=== PATIENT | female | born 1975 ===

== ENCOUNTER 2020-01-13 13:44 | Emergency (ER) | payer MEDICAID ==
[~2020-01-13] VITALS: Ht 157.5 cm; Wt 63.5 kg
[2020-01-13 13:58] VITALS: BP 115/77
--- NOTE | 2020-01-13 14:00 | NUR ---
ED Nurse Note: Patient walked in to ER from home due to generalized body rashes and itching x 2 days. Pt states her rashes began after eating [employer] last tuesday night. Patient presented calm, has rash all over her body, AAO x4, VSS at this time. DARYL Castro at bed side
--- NOTE | 2020-01-13 14:14 | Emergency Room Report ---
History of Present Illness General Chief Complaint: Allergic Reaction Source: Patient Present Illness HPI 44 YO female presents to the ED c/o diffuse itchy rash that is all over her body x 2 days. Pt. reports onset after eating at [employer] on Tuesday afternoon. She denies pain. She reports she has taken benadryl with helps with itching temporarily. Pt. denies fevers, chills or swollen tender lymph nodes. Denies lesions/rashes elsewhere on the body. Denies new medications or body washes or creams. Denies swelling of the lips, tongue , throat or airway. Denies wheezing, or shortness of breath. Denies recent travel, recent illness or ill contacts. denies blisters, oral lesions, or sloughing of the skin. She denies hx of recent infection or autoimmune disease. Pt. denies past medical hx and reports always being healthy and not taking any medications or supplements at all. She denies . 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 Patient History Past Medical History: see triage record Past Surgical History: none Pertinent Family History: none Now: No Reviewed Nursing Documentation: PMH: Agreed; PSxH: Agreed Nursing Documentation-PMH Past Medical History: No Stated History Review of Systems All Other Systems: negative except mentioned in HPI Physical Exam Vital Signs Date Time Temp Pulse Resp B/P (MAP) Pulse Ox O2 Delivery O2 Flow Rate FiO2 01/13/20 13:49 98.4 98 16 115/77 (90) 98 Room Air Sp02 EP Interpretation: reviewed, normal General Appearance: no apparent distress, alert, GCS 15, non-toxic Head: normocephalic, atraumatic Eyes: bilateral eye normal inspection, bilateral eye PERRL ENT: hearing grossly normal, normal pharynx, normal voice, uvula midline, moist mucus membranes, other - no oral lesions. No swelling of the lips or tongue. Neck: full range of motion, other - no stridor Respiratory: chest non-tender, lungs clear, normal breath sounds, no respiratory distress, no accessory muscle use, no wheezing, speaking full sentences Cardiovascular #1: regular rate, rhythm, no edema, normal capillary refill Gastrointestinal: non tender, soft Musculoskeletal: normal range of motion, gait/station normal, non-tender Neurologic: alert, motor strength/tone normal, oriented x3, sensory intact, responsive, speech normal, grossly normal Psychiatric: judgement/insight normal Skin: rash - diffuse urticarial type rash with confluent areas as well as patches with irregular well defined red borders on- torso, extremities, neck and back. few patches on the face. no eye involvement. No blisters or vesicles. No sloughing of the skin. some discrete lesions on the palms and soles. no crusting. No Lymphatic: no adenopathy Medical Decision Making PA Attestation Dr. Jurado is my supervising Physician whom patient management has been discussed with. Diagnostic Impression: Primary Impression: Rash and nonspecific skin eruption Additional Impression: Erythema multiforme ER Course 44 YO female presents to the ED c/o diffuse itchy rash that is all over her body x 2 days. Pt. reports onset after eating at [facility] on Tuesday afternoon. She denies pain. She reports she has taken benadryl with helps with itching temporarily. Pt. denies fevers, chills or swollen tender lymph nodes. Denies lesions/rashes elsewhere on the body. Denies new medications or body washes or creams. Denies swelling of the lips, tongue , throat or airway. Denies wheezing, or shortness of breath. Denies recent travel, recent illness or ill contacts. denies blisters, oral lesions, or sloughing of the skin. She denies hx of recent infection or autoimmune disease. Pt. denies past medical hx and reports always being healthy and not taking any medications or supplements at all. She denies . Ddx considered but are not limited to cellulitis, scabies, shingles, varicella, dermatitis, urticaria, eczema, tinea, viral exanthem, SJS Vital signs: are WNL, pt. is afebrile H&PE are most consistent with Rash/ Non-specific skin eruption- suspicion for erythema multiforme. NO oral lesions, vital signs WNL and stable. Pt. non Toxic in appearance, NAD, no evidence to suggest acute impending airway compromise or anaphylaxis, no sloughing of the skin or blisters. ORDERS: none required at this time, the diagnosis is clinical ED INTERVENTIONS: -Solu-medrol IM 125mg - Benadryl 50mg IM DISCHARGE: At this time pt. is stable for d/c to home. Will provide printed patient care instructions, and any necessary prescriptions. Care plan and follow up instructions have been discussed with the patient prior to discharge. Last Vital Signs Date Time Temp Pulse Resp B/P (MAP) Pulse Ox O2 Delivery O2 Flow Rate FiO2 01/13/20 13:58 98.4 16 115/77 98 Room Air 01/13/20 13:58 98 Disposition: HOME, SELF-CARE Condition: Stable Scripts Diphenhydramine Hcl (BENADRYL ALLERGY) 25 Mg Tablet 50 MG PO Q6HR, #30 TAB Prov: Nellie Willis 01/13/20 Prednisone* (PREDNISONE*) 20 Mg Tablet 40 MG ORAL DAILY for 5 Days, #10 TAB Prov: Nellie Willis 01/13/20 Referrals: NOT CHOSEN IPA/,REFERRING (PCP) Yanet Roberts Comp. [facility] Patient Instructions: Erythema Multiforme, Rash, [id number] Additional Instructions: Take medications as directed. Do not drink alcohol, drive, or operate heavy machinery while taking Benadryl as this may cause drowsiness. Follow up with a Primary Care Provider in 3-5 days for DERMATOLOGY REFERRAL , even if your symptoms have resolved. --Please review list of primary care clinics, if you do not already have a primary care provider Return sooner to ED if new symptoms occur, or current symptoms become worse. - Please note that this Emergency Department Report was dictated using [employer] tower technology software, occasionally this can lead to erroneous entry secondary to interpretation by the dictation equipment. Nellie Willis Jan 13, 2020 14:14
[2020-01-13] MEDS ORDERED: Solu-MEDROL 125mg Inj IM ONE (14:15)
[2020-01-13] MEDS ORDERED: DiphenhydrAMINE 50mg/ml Inj IM ONE (14:15)
[2020-01-13] MEDS ORDERED: PREDNISONE20 MG ORAL (14:32)
[2020-01-13] MEDS ORDERED: BENADRYL ALLERG25 M1 PO (14:32)
[2020-01-13 14:36] VITALS: BP 115/77
--- NOTE | 2020-01-13 14:37 | NUR ---
ED Nurse Note: Pt cleared by health care Provider for discharge. DC instructions/prescription was given and explained to pt and verbalized understanding of teachings. All medical deviecs such as ID band removed. Pt is AAO x4, ambulatory and left with all personal belongings.
== END 2020-01-13 14:37 | disposition home or self-care (01) ==
LOC: EMR 13:53
DX: R21 Rash and other nonspecific skin eruption (principal); L51.9 Erythema multiforme, unspecified
CPT/HCPCS: 96372; J1200; J2930; Z7502; 99283